=== PATIENT | male | born 1975 | race Caucasian/White ===

== ENCOUNTER 2018-02-21 13:47 | Emergency (ER) | payer BC ==
[2018-02-21 14:31] VITALS: BP 144/106
--- NOTE | 2018-02-21 14:47 | UC ---
Hand/Wrist HPI - HPI Summary HPI Summary: The patient is a 42-year-old male who slipped and fell on snow for 5 days ago. He landed on his outstretched left arm. He has persistent left wrist pain. He is right handed. Due to the discomfort he cannot lift some of the tools he uses at work. - History Of Current Complaint Chief Complaint: UCUpperExtremity Stated Complaint: LEFT WRIST COMPLAINT Time Seen by Provider: 02/21/18 14:43 Onset/Duration: Sudden Onset Severity Initially: Moderate Severity Currently: Mild Pain Intensity: 2 Pain Scale Used: 0-10 Numeric Character Of Pain: Dull, Aching Aggravating Factor(s): Movement Alleviating Factor(s): Rest Associated Signs And Symptoms: Positive: Swelling Related History: Dominant Hand Right Hands: 1 - min swelling 2 - some snuff box tenderness - Allergies/Home Medications Allergies/Adverse Reactions: Allergies Allergy/AdvReac Type Severity Reaction Status Date / Time codeine Allergy Rash Verified 02/21/18 14:27 PMH/Surg Hx/FS Hx/Imm Hx Previously Healthy: Yes - Surgical History Surgical History: Yes Surgery Procedure, Year, and Place: Appendectomy - Family History Known Family History: Positive: Hypertension - Social History Alcohol Use: None Substance Use Type: None Smoking Status (MU): Smoker, Current Status Unknown Type: Smokeless Tobacco Amount Used/How Often: 1 can every 2 days Review of Systems All Other Systems Reviewed And Are Negative: Yes Constitutional: Positive: Negative Skin: Positive: Negative Eyes: Positive: Negative ENT: Positive: Negative Respiratory: Positive: Negative Cardiovascular: Positive: Negative Gastrointestinal: Positive: Negative Genitourinary: Positive: Negative Motor: Positive: Negative Neurovascular: Positive: Negative Musculoskeletal: Positive: Arthralgia Neurological: Positive: Negative Psychological: Positive: Negative Physical Exam Triage Information Reviewed: Yes Appearance: Well-Appearing, No Pain Distress, Well-Nourished Vital Signs: Initial Vital Signs Temp 98.1 F 02/21/18 14:27 Pulse 72 02/21/18 14:27 Resp 16 02/21/18 14:27 BP 144/106 02/21/18 14:27 Pulse Ox 98 02/21/18 14:27 Vital Signs Reviewed: Yes Eyes: Positive: Conjunctiva Clear ENT: Negative: Nasal congestion, Nasal drainage, Trismus, Muffled voice, Hoarse voice Neck: Positive: Supple, Nontender Respiratory: Positive: Lungs clear, Normal breath sounds, No respiratory distress, No accessory muscle use Cardiovascular: Positive: RRR, No Murmur Musculoskeletal: Positive: Other: - see image Neurological: Positive: Alert Psychological Exam: Normal Skin Exam: Normal Diagnostics - Radiology No standard instances Radiology Interpretation Completed By: Radiologist Summary of Radiographic Findings: no fx Hand/Wrist Course/Dx - Differential Dx/Diagnosis Provider Diagnosis: Left wrist sprain, Elevated blood pressure reading without diagnosis of hypertension Discharge - Sign-Out/Discharge Documenting (check all that apply): Patient Departure All imaging exams completed and their final reports reviewed: Yes - Discharge Plan Condition: Stable Disposition: HOME Patient Education Materials: Wrist Sprain (ED) Referrals: Alphonse Anthony MD [Medical Doctor] - 5 Days (if not better) [facility] [Outside] - If Needed (you need to find a primary care doctor to follow your blood pressure today your BP is elevated I suggest recheck in 2-12 weeks) Additional Instructions: thumb spica splint tylenol or aleve for pain see orthopedist next week BP needs to be followed - Billing Disposition and Condition Condition: STABLE Disposition: Home
== END 2018-02-21 15:36 | disposition home or self-care (01) ==
LOC: UCCORT 13:47
DX: S63.502A Unspecified sprain of left wrist, initial encounter (principal); W00.0XXA Fall on same level due to ice and snow, initial encounter; Y92.9 Unspecified place or not applicable; R03.0 Elevated blood-pressure reading, without diagnosis of hypertension; F17.220 Nicotine dependence, chewing tobacco, uncomplicated
CPT/HCPCS: 99202; G0463

== ENCOUNTER 2018-05-27 19:35 | Emergency (ER) | payer BC ==
[2018-05-27 20:38] VITALS: BP 156/93
[2018-05-27] MEDS ORDERED: Ibuprofen ADULT LIQ* 600 MG/30 ML UDC PO ONE (21:18)
--- NOTE | 2018-05-27 21:18 | UC ---
UC General HPI - HPI Summary HPI Summary: SATURDAY, PT HAD A SUDDEN ONSET OF HEADACHE, SINUS CONGESTION AND SUBJECTIVE FEVER. + SINUS PAIN, SCRATCHY THROAT AND BODYACHES. TAKING THERAFLU WHICH "DOESN'T TOUCH IT" - History of Current Complaint Chief Complaint: UCRespiratory Stated Complaint: SINUS PRESSURE Time Seen by Provider: 05/27/18 21:12 Hx Obtained From: Patient Timing: Constant Pain Intensity: 8 Associated Signs & Symptoms: Negative: Chest Pain, Diarrhea, SOB, Vomiting - Allergy/Home Medications Allergies/Adverse Reactions: Allergies Allergy/AdvReac Type Severity Reaction Status Date / Time codeine Allergy Rash Verified 05/27/18 20:34 PMH/Surg Hx/FS Hx/Imm Hx Previously Healthy: Yes - Surgical History Surgical History: Yes Surgery Procedure, Year, and Place: Appendectomy - Family History Known Family History: Positive: Hypertension - Social History Occupation: Employed Full-time Alcohol Use: None Substance Use Type: None Smoking Status (MU): Current Some Day Smoker Type: Smokeless Tobacco Amount Used/How Often: 1 can every 2 days Review of Systems All Other Systems Reviewed And Are Negative: Yes Constitutional: Positive: Fever, Chills, Fatigue ENT: Positive: Sore Throat, Sinus Congestion, Sinus Pain/Tenderness Musculoskeletal: Positive: Myalgia Neurological: Positive: Headache Physical Exam Triage Information Reviewed: Yes Appearance: Ill-Appearing - BUT NON TOXIC Vital Signs: Initial Vital Signs Temp 98.6 F 05/27/18 20:35 Pulse 81 05/27/18 20:35 Resp 16 05/27/18 20:35 BP 156/93 05/27/18 20:35 Pulse Ox 100 05/27/18 20:35 Vital Signs Reviewed: Yes Eyes: Positive: Conjunctiva Clear ENT: Positive: Pharynx normal, TMs normal. Negative: Nasal drainage Neck: Positive: Supple, Nontender, No Lymphadenopathy Respiratory: Positive: Lungs clear, Normal breath sounds, No respiratory distress Cardiovascular: Positive: RRR, No Murmur Abdomen Description: Positive: Nontender, No Organomegaly, Soft Bowel Sounds: Positive: Present Musculoskeletal: Positive: ROM Intact Neurological: Positive: Alert Psychological: Positive: Age Appropriate Behavior Skin Exam: Normal Course/Dx - Course Course Of Treatment: DIAGNOSTICS=RAPID FLU IS NEGATIVE. RAPID FLU=NEGATIVE; HOWEVER, S/S'S ARE C/W LOCAL INFLUENZA AND TEST IS NOT 100%. - Differential Dx - Multi-Symptom Differential Diagnoses: Other - URI, SINSUITIS, VIRAL SYNDROM/INFLUENZA - Diagnoses Provider Diagnosis: Influenza-like illness Discharge - Sign-Out/Discharge Documenting (check all that apply): Patient Departure All imaging exams completed and their final reports reviewed: No Studies - Discharge Plan Condition: Stable Disposition: HOME Patient Education Materials: Influenza (ED) Forms: *Work Release Referrals: ALICIA Anand [Medical Doctor] - Additional Instructions: FOLLOW UP PRIMARY CARE IF NOT BETTER IN 5 DAYS OR SOONER IF WORSE. - Billing Disposition and Condition Condition: STABLE Disposition: Home - Attestation Statements Provider Attestation: Per institutional requirements, I have reviewed the chart, however, I was not consulted specifically or made aware of this patient by the midlevel provider. I did not personally evaluate, interact with , or disposition this patient.
[2018-05-27 21:46] LABS: Influenza A Molecular NEGATIVE (Negative); Influenza B Molecular NEGATIVE (Negative)
== END 2018-05-27 22:19 | disposition home or self-care (01) ==
LOC: UCCORT 19:35
DX: J11.1 Influenza due to unidentified influenza virus with other respiratory manifestations (principal); F17.290 Nicotine dependence, other tobacco product, uncomplicated; Z88.5 Allergy status to narcotic agent
CPT/HCPCS: 99212; A9270-GY; G0463

== ENCOUNTER 2019-04-22 11:55 | Emergency (ER) | payer BC ==
--- NOTE | 2019-04-22 12:33 | UC ---
Ear Complaint HPI - HPI Summary HPI Summary: 43-year-old male presenting with sensation that "something is stuck in his right ear" x4 days. Patient states he has had this in the past with wax buildup. Denies pain in the ear. Denies drainage and bleeding. Does note muffled hearing. Denies tinnitus. Denies fever and chills. Does note recent URI symptoms, taking Sudafed for congestion. - History of Current Complaint Stated Complaint: EAR COMPLAINT Hx Obtained From: Patient - Allergies/Home Medications Allergies/Adverse Reactions: Allergies Allergy/AdvReac Type Severity Reaction Status Date / Time codeine Allergy Rash Verified 04/22/19 12:35 Home Medications: Home Medications Aspirin/Acetaminophen/Caffeine [Excedrin Migraine Caplet] 2 each PO SEE INSTRUCTIONS 04/22/19 [History Confirmed 04/22/19] Nighttime Sudafed Tab 1 tab PO QPM PRN 04/22/19 [History Confirmed 04/22/19] Sudafed Nighttime 1 tab PO QPM PRN 04/22/19 [History Confirmed 04/22/19] PMH/Surg Hx/FS Hx/Imm Hx - Surgical History Surgical History: Yes Surgery Procedure, Year, and Place: Appendectomy - Family History Known Family History: Positive: Hypertension, Non-Contributory - Social History Alcohol Use: None Substance Use Type: None Smoking Status (MU): Current Some Day Smoker Type: Smokeless Tobacco Amount Used/How Often: 1 can every 2 days Review of Systems All Other Systems Reviewed And Are Negative: No Constitutional: Positive: Negative ENT: Positive: Sinus Congestion, Other - right ear foreign body sensation. Negative: Ear Ache Respiratory: Positive: Negative Cardiovascular: Positive: Negative Musculoskeletal: Positive: Negative Neurological/Mental Status: Positive: Negative Physical Exam - Summary Physical Exam Summary: Vital Signs Reviewed: Yes A+Ox3, no distress Eyes: Conjunctiva Clear ENT: Hearing grossly normal, cerumen impaction right ear, left TM clear neck: supple Respiratory: Positive: No respiratory distress, No accessory muscle use Cardiovascular: skin color reflect adequate perfusion Musculoskeletal Exam: ISLAS x 4 without difficulty Neurological: Positive: Alert, ambulatory without difficulty Psychological: Positive: age appropriate behavior Skin: Positive: no rash, no ecchymosis Ear Complaint Course/Dx - Course Course Of Treatment: Ear irrigation was performed on the right ear without success. I then tried to manually remove cerumen, but patient asked me to stop because "it was too painful." He agreed to have liquid Colace drops placed in the ear and try irrigation once more. This was done and the wax was still able to be removed. Patient declined further attempts to remove manually and stated he "needs to leave to run errands." Instructed to try [id number] wax softening drops for safe removal at home. Instructed not to place any objects in the ear. Instructed to return or follow up with pcp or care connections if symptoms persist. Patient voiced understanding and agreed with plan. - Differential Dx/Diagnosis Provider Diagnosis: Impacted cerumen of right ear Discharge ED - Sign-Out/Discharge Documenting (check all that apply): Patient Departure All imaging exams completed and their final reports reviewed: No Studies - Discharge Plan Condition: Stable Disposition: HOME Patient Education Materials: Cerumen Impaction (ED) Referrals: [facility] [Outside] - If Needed Additional Instructions: The wax was unable to be fully removed from your ear today. You may use peroxide and warm water or wax softening drops found over the counter to try to remove the wax at home. Do not place objects in your ear, including Q tips. You may return or follow up with your primary care provider or the [facility] connections clinic listed below if symptoms persist. - Billing Disposition and Condition Condition: STABLE Disposition: Home
[2019-04-22 12:35] VITALS: BP 142/91
[2019-04-22] MEDS ORDERED: Docusate LIQ* 100 MG/10 ML UDC OTIC ONE (13:36)
== END 2019-04-22 14:10 | disposition home or self-care (01) ==
LOC: UCCORT 11:55
DX: H61.21 Impacted cerumen, right ear (principal); Z88.5 Allergy status to narcotic agent; F17.290 Nicotine dependence, other tobacco product, uncomplicated
CPT/HCPCS: 99212; A9270-GY; G0463